=== PATIENT | male | born 1980 | race African-American/Black ===

== ENCOUNTER → 2019-06-01 | Outpatient (CLI) | payer MEDICAID ==
--- NOTE | 2019-06-01 12:04 | CARD ---
MR#: [id number] Date of Study: 06/01/2019 Ordering Physician: RUSS WALLACE, Referring Physician: RUSS WALLACE, Tech: Jagruti Mcginnis APPROVED REPORT EXAM: Two-dimensional and M-mode echocardiogram with Doppler and color Doppler. Other Information Quality : GoodHR: 41bpm INDICATION Arrhythmia Right Bundle Branch Block RISK FACTORS Smoking 2D DIMENSIONS RVDd1.5 (2.9-3.5cm)Left Atrium(2D)2.5 (1.6-4.0cm) IVSd0.8 (0.7-1.1cm)Aortic Root(2D)2.7 (2.0-3.7cm) LVDd4.7 (3.9-5.9cm)LVOT Diameter1.9 (1.8-2.4cm) PWd0.8 (0.7-1.1cm)LVDs3.1 (2.5-4.0cm) FS (%) 34.3 %SV63.8 ml Aortic Valve AoV Peak Bhavesh.112.2cm/sAoV VTI25.6cm AO Peak GR.5.0mmHgLVOT Peak Bhavesh.66.8cm/s AO Mean GR.3mmHgAVA (VMAX)1.71cm2 Mitral Valve MV E Lmqzyxvs48.0cm/sMV DECEL WZWQ174ky MV A Szmfbjor46.9cm/sE/A Ratio1.1 Pulmonary Valve PV Peak Zaqvgbyy79.6cm/s Tricuspid Valve TR P. Vgmhchsn330qj/sRAP PJHWHRIP2jzOa TR Peak Gr.23dbQqBMVG15dcIu Pulmonary Vein S1 Dlfmlpwf04.7cm/sD2 Xvqxkpeu86.3cm/s PVa uoxmmhzm481fvjf LEFT VENTRICLE The Left Ventricle is borderline dilated. There is normal left ventricular wall thickness. The systol ic function is mildly impaired. The Ejection Fraction is 40-45%. There is mild global hypokinesis of the left ventricle. The left ventricular diastolic function and filling is normal for age. RIGHT VENTRICLE The right ventricle is borderline dilated. There is normal right ventricular wall thickness. Systolic function is borderline reduced. ATRIA The left atrium size is normal. The right atrium size is normal. The interatrial septum is intact wit h no evidence for an atrial septal defect or patent foramen ovale as noted on 2-D or Doppler imaging. AORTIC VALVE The aortic valve is normal in structure and function. Doppler and Color Flow revealed no significant aortic regurgitation. There is no significant aortic valvular stenosis. MITRAL VALVE The mitral valve is normal in structure and function. There is no evidence of mitral valve prolapse. There is no mitral valve stenosis. Doppler and Color-flow revealed trace mitral regurgitation. TRICUSPID VALVE The tricuspid valve is normal in structure and function. Doppler and Color Flow revealed trace tricus pid regurgitation with an estimated PAP of 24 mmHg. There is no tricuspid valve prolapse or vegetatio n. There is no tricuspid valve stenosis. PULMONIC VALVE The pulmonic valve is not well visualized. Doppler and Color Flow revealed trace pulmonic valvular re gurgitation. GREAT VESSELS The aortic root is normal in size. The IVC is normal in size and collapses >50% with inspiration. PERICARDIAL EFFUSION There is no evidence of significant pericardial effusion. Critical Notification Critical Value: No <Conclusion> The Left Ventricle is borderline dilated. The systolic function is mildly impaired. The Ejection Fraction is 40-45%. There is mild global hypokinesis of the left ventricle. There is no significant aortic valvular stenosis. Doppler and Color Flow revealed no significant aortic regurgitation. Doppler and Color-flow revealed trace mitral regurgitation. Doppler and Color Flow revealed trace tricuspid regurgitation with an estimated PAP of 24 mmHg. Signed by : Elpidio Cedeno MD Electronically Approved : 06/01/2019 12:04:38
== END | disposition home or self-care (01) ==
LOC: ECHO 09:57
PROVIDERS: ATTEND Family Medicine
DX: I45.10 Unspecified right bundle-branch block (principal); I49.9 Cardiac arrhythmia, unspecified
CPT/HCPCS: 93306

== ENCOUNTER → 2019-08-29 | Outpatient (CLI) | payer MEDICAID ==
[~2019-08-29] MED LIST: REGADENOSON 0.4 MG/5 ML DISP.SYRIN. IV ONE
--- NOTE | 2019-08-29 13:25 | RAD ---
MR#: [id number] Date of Study: 08/29/2019 Ordering Physician: SRAVANI COOK, Referring Physician: JESSIE CASILLAS Tech: RT Ortega (R) (N) APPROVED REPORT Test Type: Pharmacological Stress Nurse/Tech: Alison Regalado RN Test Indications: cardiomyopathy, murmur Cardiac History: See Electronic Medical Record Medications: See Electronic Medical Record Medical History: cardiomyopathy, murmur, smoker Resting ECG: SR w/ ST abnormality Resting Heart Rate: 54 bpm Resting Blood Pressure: 101/55mmHg Pretest Chest Pain: none Nurse/Tech Notes S1S2, pulses +, lungs CTA, murmur noted, pt has tremors, denied chest pain or SOA. Consent: The procedure was explained to the patient in lay terms. Informed consent was witnessed. Zach eout was entered into [employer]. History and Stress Test performed by JEFFREY Skinner Pharm. Details Pharmacologic stress testing was performed using 0.4mg per 5ml of regadenoson given intravenously ove r 7-10 seconds. Stress Symptoms Pt denied any symptoms during the test POST EXERCISE Reason for Termination: Infusion complete Target HR: 155 Max HR: 109 bpm Max Blood Pressure: 109/58mmHg Blood Pressure response to exercise: Normal blood pressure response during stress. Heart Rate response to exercise: Normal resoonse to stress Chest Pain: No. Arrhythmia: . occasional PVC noted INTERPRETATION Stress EKG Conclusion: The resting EKG shows a sinus rhythm with nonspecific ST-T wave changes. The stress EKG shows no significant changes from baseline. No EKG evidence of stressed induced ischemia. Imaging Protocol IMAGE PROTOCOL: Rest Tc-99m/stress Tc-99m 1 day Rest: Stress: Viability: Radiopharm.Tc99m PuyrtekjrYo94j Sestamibi Uynh48rBn 33mCi Duration 13min. 13min. Img Date 08/29/2019 08/29/2019 Inj-Img Zepn83ugh. 60min. Rest Admin Site:IV - Right AntecubitalAdministrator:JEFFREY Skinner Stress Admin Site: IV - Right AntecubitalAdministrator: JEFFREY Skinner STRESS DATA End Diast. Vol.103.0mlLVEDV index BSA59.0ml End Syst. Vol.26.0mlLVESV index BSA15.0ml Myocardial Ejhp514.0gEject. Fkvrigqq94.0% Stress Scores Regional WT0.00Summed WT4.00 Regional WM0.00Summed WM0.00 LV Perfusion The stress scans show no significant defects. The rest scans show mild inferior apical thinning. Wall Motion LV systolic function is normal with no wall motion abnormallities and an EF of greater than 70%. LV Perf. Quant 17 Seg. SSS6.00 17 Seg. SRS5.00 17 Seg. SDS4.00 Stress Defect Extent (% LAD)0.00Rest Defect Extent (% LAD)5.00Rev. Defect Extent (% LAD)0.00 Stress Defect Extent (% LCX) 47.50Rest Defect Extent (% LCX)13.80Rev. Defect Extent (% LCX)40.00 Stress Defect Extent (% RCA)0.00Rest Defect Extent (% RCA)7.80Rev. Defect Extent (% RCA)0.00 Stress Defect Extent (% JERICHO)11.30Rest Defect Extent (% JERICHO)10.90Rev. Defect Extent (% JERICHO)8.00 IMPRESSION Comparison of Rest to Stress Regional Wall Thickening: No Change, Normal, Mildly Decreased Wall Thic kening, Moderately Decreased Wall Thickening, Severely Decreased Wall Thickening, Hyperdynamic Wall T hickening Conclusion 1. No EKG evidence of stress induced ischemia. 2. Nuclear imaging shows no reversible ischemia or infarct. 3. Normal LV systolic function with an ejection fraction of greater than 70%. 4. Low risk Lexiscan nuclear stress test. Signed by : Elpidio Cedeno MD Electronically Approved : 08/29/2019 13:25:17
== END | disposition home or self-care (01) ==
LOC: NM 08:20
PROVIDERS: ATTEND Internal Medicine Cardiovascular Disease
DX: I42.9 Cardiomyopathy, unspecified (principal); F17.200 Nicotine dependence, unspecified, uncomplicated
CPT/HCPCS: 78452; 93017; A9500; J2785

== ENCOUNTER → 2021-11-26 | Outpatient (CLI) | payer MEDICAID ==
--- NOTE | 2021-11-27 11:42 | CARD ---
MR#: [id number] Date of Study: 11/26/2021 Ordering Physician: SRAVANI COOK, Referring Physician: SRAVANI COOK Tech: Ev Matthews [facility] APPROVED REPORT EXAM: Two-dimensional and M-mode echocardiogram with Doppler and color Doppler. Other Information Quality : AverageHR: 56bpm Rhythm : NSR INDICATION Palpitations 2D DIMENSIONS RVDd3.1 (2.9-3.5cm)Left Atrium(2D)2.9 (1.6-4.0cm) IVSd0.8 (0.7-1.1cm)Aortic Root(2D)2.8 (2.0-3.7cm) LVDd4.3 (3.9-5.9cm)LVOT Diameter1.9 (1.8-2.4cm) PWd1.0 (0.7-1.1cm)LVDs2.3 (2.5-4.0cm) FS (%) 46.1 %SV63.8 ml LVEF(%)77.8 (>50%) Aortic Valve AoV Peak Bhavesh.127.4cm/sAoV VTI33.8cm AO Peak GR.6.5mmHgLVOT Peak Bhavesh.76.4cm/s AO Mean GR.3mmHgAVA (VMAX)1.73cm2 Mitral Valve MV E Iojlgogv70.8cm/sMV DECEL WDGL466jk MV A Hlurfwib62.9cm/sE/A Ratio1.3 Pulmonary Valve PV Peak Fsiqadlc850.2cm/s Tricuspid Valve TR P. Oviwdyrs510rg/sTR Peak Gr.26mmHg LEFT VENTRICLE The left ventricle is normal size. There is normal left ventricular wall thickness. The left ventricu lar systolic function is normal. Estimated ejection fraxtion 60%. There is normal LV segmental wall motion. The left ventricular diastolic function and filling is normal for age. RIGHT VENTRICLE The right ventricle is normal size. There is normal right ventricular wall thickness. The right ventr icular systolic function is normal. ATRIA The left atrium size is normal. The right atrium size is normal. The interatrial septum is intact wit h no evidence for an atrial septal defect or patent foramen ovale as noted on 2-D or Doppler imaging. AORTIC VALVE The aortic valve is normal in structure and function. Doppler and Color Flow revealed no significant aortic regurgitation. There is no significant aortic valvular stenosis. MITRAL VALVE The mitral valve is normal in structure and function. There is no evidence of mitral valve prolapse. There is no mitral valve stenosis. Doppler and Color-flow revealed trace to mild mitral regurgitation . TRICUSPID VALVE The tricuspid valve is normal in structure and function. Doppler and Color Flow revealed mild tricusp id regurgitation. Estimated PAP 25-30 mmHg. There is no tricuspid valve stenosis. PULMONIC VALVE The pulmonary valve is normal in structure and function. Doppler and Color Flow revealed mild pulmoni c valvular regurgitation. GREAT VESSELS The aortic root is normal in size. The ascending aorta is normal in size. The IVC is normal in size a nd collapses <50% with inspiration. PERICARDIAL EFFUSION There is no evidence of significant pericardial effusion. Critical Notification Critical Value: No <Conclusion> The left ventricular systolic function is normal. Estimated ejection fraxtion 60%. There is normal LV segmental wall motion. Trace to mild mitral regurgitation. Mild tricuspid regurgitation. Estimated PAP 25-30 mmHg. There is no evidence of significant pericardial effusion. Signed by : Sravani Cook, Electronically Approved : 11/27/2021 11:41:51
== END ==
LOC: ECHO 09:07
PROVIDERS: ATTEND Internal Medicine Cardiovascular Disease
DX: I42.9 Cardiomyopathy, unspecified (principal); I08.8 Other rheumatic multiple valve diseases
CPT/HCPCS: 93306; C8929